=== PATIENT | female | born 2000 | race Caucasian/White ===

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

== ENCOUNTER 2020-10-19 18:37 | Outpatient (REF) | payer MEDICAID, SELFPAY ==
[2020-10-19 20:33] LABS: Abs Immature Grans 0.01 10^3/uL (0.0-0.06); Absolute Basophil Count 0.04 10^3/uL (0.0-0.2); Absolute Eosinophil Count 0.21 10^3/uL (0.0-0.7); Absolute Lymphocyte Count 2.29 10^3/uL (1.2-3.4); Absolute Monocyte Count 0.82 10^3/uL (0.1-0.8); Absolute Neutrophil Count 3.83 10^3/uL (1.2-6.7); Basophils % 0.6; Eosinophils % 2.9; HCT 41.5 % (36.0-46.0); HGB 13.8 g/dL (11.2-15.7); Immature Grans % 0.1; Lymphocytes % 31.8; MCH 29.9 pg (27.0-33.0); MCHC 33.3 % (32.0-36.0); MCV 89.8 fL (80-95); MPV 11.2 fL (8.0-11.0); Monocytes % 11.4; Neutrophils % 53.2; Nucleated RBC 0 %; Platelet Count 342 10^3/uL (130-400); RBC 4.62 10^6/uL (3.93-5.22); RDW 11.8 % (11.7-14.6); RDW-SD 38.5 fL
== END 2020-10-19 18:38 | disposition home or self-care (01) ==
LOC: NCHCN 18:37
PROVIDERS: PCP Family Medicine; Visit Provider Physician Assistant Medical
DX: R04.0 Epistaxis (principal)
CPT/HCPCS: 85025; 85610; 85730

== ENCOUNTER 2021-02-19 23:49 | Outpatient (REF) | payer MEDICAID, SELFPAY ==
[2021-02-22 15:48] LABS: Chlamydia Result Negative (Negative); GC Result Negative (Negative)
== END 2021-02-19 23:50 | disposition home or self-care (01) ==
LOC: LBN 23:49
PROVIDERS: PCP Family Medicine; Visit Provider Obstetrics & Gynecology Gynecology
DX: Z11.3 Encounter for screening for infections with a predominantly sexual mode of transmission (principal)
CPT/HCPCS: 87491; 87591

== ENCOUNTER → 2021-08-18 01:31 | Outpatient (CLI) | payer MEDICAID, SELFPAY ==
--- NOTE | 2021-08-18 07:30 | DI.US_ITS ---
Exam(s) US PELVIS TRANSVAGINAL EXAM: US PELVIS TRANSVAGINAL CLINICAL HISTORY: dysmenorrhea, N94.6 TECHNIQUE: Ultrasound of the pelvis was performed both transabdominal and transvaginal. COMPARISON: No exams were available for comparison FINDINGS: UTERUS: Retroflexed Measures 7.4 cm length x 4.2 cm AP x 5.7 cm wide. There are no uterine fibroids. Endometrial thickness measures 10.8 mm. And appears homogeneous. There is no fluid in the endometrial canal. CERVIX: There are no obvious nabothian cysts. RIGHT OVARY: Measures 3.4 x 2.9 x 1.8 cm No significant cysts nor masses evident in the right ovary. LEFT OVARY: Measures 3.4 x 2.1 x 2.7 cm No significant cysts nor masses evident in the left ovary. CUL-DE-SAC: No free fluid evident. IMPRESSION: 1. Normal appearing uterus and age-appropriate endometrium. 2. No abnormal ovarian findings. 3. No free fluid evident in the adnexal regions and cul-de-sac. DATA REPOSITORY:
== END ==
PROVIDERS: PCP Family Medicine; Visit Provider Obstetrics & Gynecology Gynecology
DX: N94.4 Primary dysmenorrhea
CPT/HCPCS: 76830; 76856

== ENCOUNTER 2022-03-18 11:54 | Outpatient (REF) | payer MEDICAID, SELFPAY ==
--- NOTE | 2022-03-18 11:25 | PAPFT_PTH ---
PATIENT: Juana Johns LOC: [facility] #:[id number] AGE/SX: 21/F ROOM: RE03/18/[address]: Tanvi Johns : 2000 BED: DIS: 03/18/2022 SPEC #: [id number] RECD: 03/18/22 12:52 STATUS: GABRIELA REQ #: [id number] KELI: 03/18/22 11:[address]: Tanvi Johns [facility]PT[facility] Cytology RECD BY: Annetta Elena ENTERED: 03/18/22 12:52 SP TYPE: PAPFT OTHR DR: Mallorie Artis V Tissues: 1 - CX/ENDOCX FOR PAP SMEARS Procedures: PAP THIN PREP/[facility] Screening Comments: [id number]
[2022-03-19 14:01] LABS: Chlamydia Result Negative (Negative); GC Result Negative (Negative)
== END 2022-03-18 11:55 | disposition home or self-care (01) ==
LOC: LBN 11:54
PROVIDERS: PCP Family Medicine; Visit Provider Obstetrics & Gynecology Gynecology
DX: Z11.3 Encounter for screening for infections with a predominantly sexual mode of transmission (principal)
CPT/HCPCS: 87491; 87591; 88142

== ENCOUNTER 2023-01-02 16:24 | Outpatient (REF) | payer MEDICAID, SELFPAY | END 2023-01-02 16:25 | disposition home or self-care (01) | LOC: NCHCN 16:24 | PROVIDERS: PCP Family Medicine; Visit Provider Nurse Practitioner Family | DX: J02.9 Acute pharyngitis, unspecified (principal) | CPT/HCPCS: 87070 ==

== ENCOUNTER 2024-10-30 11:32 | Outpatient (REF) | payer MEDICAID, SELFPAY ==
--- NOTE | 2024-10-30 11:20 | PAPFT_PTH ---
PATIENT: Juana Johns LOC: [facility] U#:[id number] AGE/SX: 23/F ROOM: RE10/30/[address]: Maddie Jacobs NP : 2000 BED: DIS: 10/30/2024 SPEC #: [id number] RECD: 10/30/24 13:15 STATUS: GABRIELA REQ #: [id number] KELI: 10/30/24 11:[address]: Maddie Jacobs NP DEPT: [facility] Cytology RECD BY: Annetta Elena ENTERED: 10/30/24 13:15 SP TYPE: PAPFT OTHR DR: Mallorie Artis V Tissues: 1 - CX/ENDOCX FOR PAP SMEARS Procedures: PAP THIN PREP/[facility] Screening Comments: [id number] (CHLAMYDIA/GC)
[2024-10-31 12:05] LABS: Chlamydia Result Negative (Negative); GC Result Negative (Negative)
== END 2024-10-30 11:33 | disposition home or self-care (01) ==
LOC: LBN 11:32
PROVIDERS: PCP Family Medicine; Visit Provider Nurse Practitioner Women's Health
DX: Z12.4 Encounter for screening for malignant neoplasm of cervix (principal)
CPT/HCPCS: 87491; 87591; 88142